=== PATIENT | female | born 1950 | race Caucasian/White ===

== ENCOUNTER 2019-08-22 15:19 | Emergency (ER) | payer MEDICARE, SELFPAY ==
--- NOTE | ~2019-08-22 | XR_ITS ---
EXAMINATION: XR shoulder RT min 2V EXAM DATE: 08/22/2019 16:19 INDICATION: Initial encounter following injury, with pain of the right shoulder. Fall 2 days ago. TECHNIQUE: The following right shoulder projections obtained: frontal projection with internal rotati on, frontal projection with external rotation, Grashey, and scapular Y view (4+ views). Correlation w as made with right humerus examination 01/03/2013. FINDINGS: There is age indeterminate right 5th rib fracture laterally. Bones appear osteopenic. No e vidence of right shoulder rotator cuff calcific tendinosis. There is mild glenohumeral, mild to mode rate acromioclavicular joint primary osteoarthritis. There are no acute right shoulder fractures or d islocations identified. There is no subcutaneous gas. The soft tissue is unremarkable. There are no radiopaque foreign bodies. IMPRESSION: 1. Age-indeterminate right 5th rib fracture laterally. 2. Shoulder mild to moderate arthritis without acute findings. Reviewed, dictated and finalized at location A.
--- NOTE | ~2019-08-22 | XR_ITS ---
EXAMINATION: XR wrist RT min 3V, XR hand RT min 3V EXAM DATE: 08/22/2019 16:19 INDICATION: Initial encounter following injury, with pain of the right hand, wrist. TECHNIQUE: Right hand frontal, lateral and oblique projections obtained and reviewed. Right wrist fro ntal, frontal with ulnar deviation, oblique and lateral projections obtained and reviewed. There is no prior study for comparison. FINDINGS: Right metacarpal bones are unremarkable. Right wrist scapholunate joint space is maintain ed. There is moderate triscaphe primary osteoarthritis. There are no acute fractures or dislocations identified. There is no subcutaneous gas. The soft tissue is unremarkable. There are no radiopaq ue foreign bodies. IMPRESSION: 1. Right hand, wrist exam without acute osseous findings. Reviewed, dictated and finalized at location A. IMPRESSION: 1. Right hand, wrist exam without acute osseous findings.
--- NOTE | ~2019-08-22 | CT_ITS ---
EXAMINATION: CT wrist RT wo con EXAM DATE: 08/22/2019 16:55 INDICATION: Scaphoid pain. Fall on outstretched hand. TECHNIQUE: Spiral CT wrist RT wo con was performed without contrast. Axial, coronal and sagittal im ages were reviewed. The dose-length product (DLP) for this examination was 402.21 mGy-cm. The expos ure was tailored according to patient size (auto mA exposure control), and iterative reconstruction ( ASIR) was used as additional dose reduction technique. Correlation is made to x-ray same date. FINDINGS: The scaphoid is unremarkable. There is moderate triscaphe primary osteoarthritis. There ar e no acute right wrist fractures or dislocations identified. There is no subcutaneous gas. The soft tissue is unremarkable. There are no radiopaque foreign bodies. IMPRESSION: No acute osseous findings. Reviewed, dictated and finalized at location A. IMPRESSION: No acute osseous findings.
[2019-08-22 15:45] VITALS: BP 148/76; PULSE 101; RESP 16; TEMP 37.2; O2SAT 95
--- NOTE | 2019-08-22 15:56 | ED.UPPEXIN ---
HPI - Extremity Injury (Upper) General Chief Complaint: Extremity Injury, Upper Stated Complaint: r shoulder and hand pain Source: patient Mode of arrival: ambulatory Limitations: no limitations History of Present Illness HPI narrative: [age] year over female with diabetes and fibromyalgia tripped 2 days ago on a concrete step off. She fell onto her outstretched right hand and then rolled onto her shoulder. She then had right shoulder, wrist and hand pain which wasn't too bad initially but has gotten progressively worse since. She describes a burning discomfort in the back of right her arm radiating to the anterior mid arm. She also has pain in her right volar hand; she points to the distal 3rd metacarpal and 4th digit. Her pain gets worse when she reaches, tries to grab something or vacuums. She is right-hand dominant. She did not hit her head. There was no LOC or headache. Related Data Home Medications Medication Instructions Recorded Confirmed metformin 1,000 mg tablet 1,000 mg PO BID 01/17/19 08/22/19 albuterol sulfate 90 mcg/actuation 1 inhalation INHALATION Q4H 04/10/19 08/22/19 aerosol inhaler bupropion HCl 150 mg tablet,12 hr 150 mg PO QAM 04/10/19 08/22/19 sustained-release fluticasone propionate 110 1 puff INHALATION Q12H 04/10/19 08/22/19 mcg/actuation HFA aerosol inhaler Allergies Allergy/AdvReac Type Severity Reaction Status Date / Time clarithromycin Allergy Mild tongue Verified 08/03/19 09:41 swelling Penicillins Allergy Mild swelling & Verified 08/03/19 09:41 difficulty breathing prochlorperazine Allergy Mild doesn't Verified 08/03/19 09:41 remember Sulfa (Sulfonamide Allergy Mild toungue Verified 08/03/19 09:41 Antibiotics) swelling sumatriptan Allergy Unknown THROAT Verified 08/03/19 09:41 SWELLING PROCHLORPERAZINE EDISYLATE Allergy Unknown Unknown Uncoded 04/14/19 16:12 PROCHLORPERAZINE MALEATE Allergy Unknown Unknown Uncoded 04/14/19 16:12 SUMATRIPTAN SUCCINATE Allergy Unknown Unknown Uncoded 04/14/19 16:12 Review of Systems Constitutional: Constitutional: Denies chills and Denies fever(s) Cardiovascular: Cardiovascular: Denies chest pain Respiratory: Respiratory: Denies dyspnea Musculoskeletal: Musculoskeletal: Reports no additional musculoskeletal complaints Integumentary/Breasts: Skin/Breast: Reports system reviewed and no additional complaints, except as docu Neurologic: Denies dizziness and Denies syncope FOR[facility]LY [facility] Past Medical History Medical History Anxiety COPD (chronic obstructive pulmonary disease) Depression Diabetes HLD (hyperlipidemia) Hypertension Normal colonoscopy (~2014) TIA (transient ischemic attack) Surgical History Surgical History H/O oophorectomy History of esophagogastroduodenoscopy (EGD) Family History Family History Mother Patient's mother is in good health Father Patient's father is in good health Social History Social History Smoking status: Heavy tobacco smoker Second hand tobacco smoke exposure: Yes Smoking end date: 08/27/18 Alcohol intake: never Exam Const: General: no acute distress Orientation/consciousness: patient oriented x3 Neck: Other: No c spine tenderness. Skin: General skin exam: normal color Extrem: Other: Tender right anterior, lateral and posterior shoulder and right scapula. Tender proximal posterior right arm. ROM of shoulder: forward flex to 80 degrees. Abduct to 45 degrees. Pain at endpoints. Right elbow is nontender with full ROM. Right snuff box tenderness. Full wrist ROM. Tender distal 3 and 4th metacarpals and 4th finger. Full ROM of all digits. Course Course Emergency Course: Explanation given why CT of wrist i
[2019-08-22] MEDS: KETOROLAC (*BKC) 60 MG/2 ML VIAL 30 MG IM (17:32)
[2019-08-22 17:39] VITALS: RESP 18
== END 2019-08-22 17:41 | disposition home or self-care (01) ==
PROVIDERS: Emergency Provider Family Medicine; PCP Family Medicine
DX: S43.401A Unspecified sprain of right shoulder joint, initial encounter (principal); M25.531 Pain in right wrist; M79.641 Pain in right hand; S22.31XA Fracture of one rib, right side, initial encounter for closed fracture; W01.0XXA Fall on same level from slipping, tripping and stumbling without subsequent striking against object, initial encounter
CPT/HCPCS: 73030; 73110; 73130; 73200; 96372; 99283; 99284; J1885

== ENCOUNTER 2019-12-06 10:38 | Outpatient (NON) | payer MEDICARE, SELFPAY ==
[2019-12-07 02:13] LABS: SARS-CoV-2 RNA PCR Negative
== END 2019-12-06 10:39 ==
PROVIDERS: PCP Family Medicine; Visit Provider Physician Assistant
DX: R50.9 Fever, unspecified (principal); Z20.828 Contact with and (suspected) exposure to other viral communicable diseases
CPT/HCPCS: 87635; C9803; U0003

== ENCOUNTER 2020-05-07 13:45 | Emergency (ER) | payer MEDICARE, SELFPAY ==
[2020-05-07 14:52] VITALS: BP 133/49; PULSE 89; RESP 20; TEMP 36.9; O2SAT 94
--- NOTE | 2020-05-07 15:28 | PC.NURSE ---
1528 PT WALKED OUT PT NOT SEEN BY PROVIDER WHO WAS BUSY WITH CRITICAL PT. PT HERE FOR SORE THROAT
--- NOTE | 2020-05-07 22:29 | ED.EAR ---
HPI - Ear Problem General Chief complaint: Ear Stated complaint: Sore throat/Bumps on Tongue/Headache Source: patient History of Present Illness HPI Narrative: This patient came in to be seen for an earache and a sore throat, and she left without being seen. Related Data Home Medications Medication Instructions Recorded Confirmed fluticasone propionate 110 1 puff INHALATION Q12H 04/10/19 08/22/19 mcg/actuation HFA aerosol inhaler aspirin 325 mg tablet 325 mg PO DAILY 12/08/19 Allergies Allergy/AdvReac Type Severity Reaction Status Date / Time clarithromycin Allergy Mild tongue Verified 05/07/20 15:03 swelling Penicillins Allergy Mild swelling & Verified 05/07/20 15:03 difficulty breathing prochlorperazine Allergy Mild doesn't Verified 05/07/20 15:03 remember Sulfa (Sulfonamide Allergy Mild toungue Verified 05/07/20 15:03 Antibiotics) swelling sumatriptan Allergy Unknown THROAT Verified 05/07/20 15:03 SWELLING bupropion AdvReac Severe Diarrhea Verified 05/07/20 15:03 PROCHLORPERAZINE EDISYLATE Allergy Unknown Unknown Uncoded 05/07/20 15:03 PROCHLORPERAZINE MALEATE Allergy Unknown Unknown Uncoded 05/07/20 15:03 SUMATRIPTAN SUCCINATE Allergy Unknown Unknown Uncoded 05/07/20 15:03 [facility] Past Medical History Medical History (Updated 04/09/20 @ 16:02 by Anabella Prince MD) Allergic rhinitis Anxiety Chronic low back pain COPD (chronic obstructive pulmonary disease) Depression Diabetes HLD (hyperlipidemia) Hypertension Lumbar radiculopathy Normal colonoscopy (~2014) TIA (transient ischemic attack) Surgical History Surgical History H/O oophorectomy History of esophagogastroduodenoscopy (EGD) Family History Family History Mother Patient's mother is in good health Father Patient's father is in good health Social History Social History Smoking packs per day: 1.5 Smoking cigarettes per day: 30.0 Years smoked: 50 Smoking pack-years: 75.00 Smoking status: Former smoker Second hand tobacco smoke exposure: Yes Smoking end date: 08/27/18 Alcohol intake: current Substance use: current Substance use type: marijuana Gender identity (if verbalized by the patient): Female Course Vital Signs Vital signs: Vital Signs Temperature 36.9 C 05/07/20 14:52 Pulse Rate 89 05/07/20 14:52 Respiratory Rate 20 05/07/20 14:52 Blood Pressure 133/49 L 05/07/20 14:52 Pulse Oximetry 94 05/07/20 14:52 Temperature 36.9 C 05/07/20 14:52 Pulse Rate 89 05/07/20 14:52 Respiratory Rate 20 05/07/20 14:52 Blood Pressure 133/49 L 05/07/20 14:52 Pulse Oximetry 94 05/07/20 14:52 Medical Decision Making Vital Signs Vital Signs: Vital Signs Temperature 36.9 C 05/07/20 14:52 Pulse Rate 89 05/07/20 14:52 Respiratory Rate 20 05/07/20 14:52 Blood Pressure 133/49 L 05/07/20 14:52 Pulse Oximetry 94 05/07/20 14:52 Temperature 36.9 C 05/07/20 14:52 Pulse Rate 89 05/07/20 14:52 Respiratory Rate 20 05/07/20 14:52 Blood Pressure 133/49 L 05/07/20 14:52 Pulse Oximetry 94 05/07/20 14:52 Discharge Plan Discharge Patient Disposition: Left Without Being Seen Prescriptions: No Action aspirin 325 mg tablet 325 mg PO DAILY RF: 0 loratadine 10 mg tablet 10 mg PO DAILY Qty: 30 RF: 5 fluticasone propionate 50 mcg/actuation spray,suspension 1 spray NASAL Q12H Qty: 1 RF: 2 pregabalin [Lyrica] 50 mg capsule 50 mg PO BID Qty: 60 RF: 2 (DME) Accu-Chek Ruchi Plus test strp Strip See Rx Instructions .ROUTE .MEDSUPPLY Qty: 100 RF: 12 Flovent HFA 110 mcg/actuation HFA aerosol inhaler 1 puff INHALATION Q12H RF: 0 (DME) BD Insulin Syringe U-500 1/2 mL 31 gauge x 15/64 syringe See Rx Instruction
== END 2020-05-07 15:35 | disposition left against medical advice (07) ==
PROVIDERS: Emergency Provider Emergency Medicine; PCP Family Medicine
DX: J02.9 Acute pharyngitis, unspecified (principal); R51.9 Headache, unspecified; I10 Essential (primary) hypertension; J30.9 Allergic rhinitis, unspecified; J44.9 Chronic obstructive pulmonary disease, unspecified; E11.9 Type 2 diabetes mellitus without complications; M54.16 Radiculopathy, lumbar region; F32.9 Major depressive disorder, single episode, unspecified; F41.9 Anxiety disorder, unspecified; Z09 Encounter for follow-up examination after completed treatment for conditions other than malignant neoplasm; Z86.73 Personal history of transient ischemic attack (TIA), and cerebral infarction without residual deficits; Z53.21 Procedure and treatment not carried out due to patient leaving prior to being seen by health care provider
CPT/HCPCS: 99199

== ENCOUNTER 2020-08-29 13:54 | Emergency (ER) | payer MEDICARE, SELFPAY ==
[2020-08-29 14:18] VITALS: BP 149/59; PULSE 112; RESP 16; TEMP 36.6; O2SAT 98
[2020-08-29] MEDS: SILVER NITRATE (*SP) STICK 2 EACH (14:44)
--- NOTE | 2020-08-29 15:14 | ED.GENADULT ---
HPI - General Adult General Chief complaint: Wound/Laceration Stated complaint: SCRATCH THAT WONT STOP BLEEDING Time Seen by Provider: 08/29/20 13:59 Source: patient and RN notes reviewed Mode of arrival: ambulatory Limitations: no limitations History of Present Illness HPI narrative: Patient is 70-year-old female who presents to emergency department for evaluation of bleeding from the face scratched a small area just below the lip and has since been unable to stop the bleeding for the last couple of hours denies similar occurrence or bleeding from other locations or anticoagulant use does take a full strength baby aspirin daily has no other complaints presents in no distress Related Data Home Medications Medication Instructions Recorded Confirmed fluticasone propionate 110 1 puff INHALATION Q12H 04/10/19 08/22/19 mcg/actuation HFA aerosol inhaler aspirin 325 mg tablet 325 mg PO DAILY 12/08/19 Allergies Allergy/AdvReac Type Severity Reaction Status Date / Time clarithromycin Allergy Mild tongue Verified 08/29/20 14:00 swelling Penicillins Allergy Mild swelling & Verified 08/29/20 14:00 difficulty breathing prochlorperazine Allergy Mild doesn't Verified 08/29/20 14:00 remember Sulfa (Sulfonamide Allergy Mild toungue Verified 08/29/20 14:00 Antibiotics) swelling sumatriptan Allergy Unknown THROAT Verified 08/29/20 14:00 SWELLING bupropion AdvReac Severe Diarrhea Verified 08/29/20 14:00 PROCHLORPERAZINE EDISYLATE Allergy Unknown Unknown Uncoded 08/29/20 14:00 PROCHLORPERAZINE MALEATE Allergy Unknown Unknown Uncoded 08/29/20 14:00 SUMATRIPTAN SUCCINATE Allergy Unknown Unknown Uncoded 08/29/20 14:00 Review of Systems Review of Systems: All systems reviewed & are unremarkable except as noted in HPI and below PMFSH Past Medical History Medical History Allergic rhinitis Anxiety Chronic low back pain COPD (chronic obstructive pulmonary disease) Depression Diabetes HLD (hyperlipidemia) Hypertension Lumbar radiculopathy Normal colonoscopy (~2014) TIA (transient ischemic attack) Surgical History Surgical History H/O oophorectomy History of esophagogastroduodenoscopy (EGD) Family History Family History Mother Patient's mother is in good health Father Patient's father is in good health Social History Social History Smoking packs per day: 1.5 Smoking cigarettes per day: 30.0 Years smoked: 50 Smoking pack-years: 75.00 Second hand tobacco smoke exposure: Yes Smoking end date: 08/27/18 Alcohol intake: current Substance use: current Substance use type: marijuana Gender identity (if verbalized by the patient): Female Exam Narrative: Exam Narrative: GENERAL: Well-appearing, well-nourished, and in no acute distress. HEAD: Normocephalic, atraumatic. EYES: PERRLA and EOMI. ENT: Nares clear, no rhinorrhea or epistaxis. Mucous membranes moist. CHEST: Clear to auscultation. No respiratory distress. No wheezes rales or rhonchi HEART: Regular rate and rhythm. No murmur heard. Normal peripheral pulses. EXTREMITIES: Normal range of motion. No edema. SKIN: Warm, dry, no rash. Small subcentimeter area of bleeding below the left lower lip that is superficial in nature will not resolve with direct pressure NEURO: No focal deficits. Alert and oriented x3. PSYCH: Normal mood and affect. Course Course Emergency Course: Patient presented with bleeding from the face was cauterized with silver nitrate hemostasis achieved will follow up on an outpatient basis ABCs and vital signs intact and stable provided with reasons to return Vital Signs Vital signs: Vital Signs Temperature 98 F 08/29/20 14:18 Pulse Rate 112 H 08/29/20 14:
== END 2020-08-29 15:33 | disposition home or self-care (01) ==
PROVIDERS: Emergency Provider Emergency Medicine; PCP Family Medicine
DX: S00.81XA Abrasion of other part of head, initial encounter (principal); E11.9 Type 2 diabetes mellitus without complications; J44.9 Chronic obstructive pulmonary disease, unspecified; E78.5 Hyperlipidemia, unspecified; I10 Essential (primary) hypertension; Z86.73 Personal history of transient ischemic attack (TIA), and cerebral infarction without residual deficits; F41.9 Anxiety disorder, unspecified; F32.9 Major depressive disorder, single episode, unspecified; Z79.82 Long term (current) use of aspirin; Z79.4 Long term (current) use of insulin; F17.210 Nicotine dependence, cigarettes, uncomplicated; X58.XXXA Exposure to other specified factors, initial encounter
CPT/HCPCS: 12011; 99282

== ENCOUNTER 2021-03-27 10:06 | Outpatient (CLI) | payer MEDICARE, SELFPAY ==
--- NOTE | ~2021-03-27 | XR_ITS ---
EXAMINATION: XR abdomen obstructive series EXAM DATE: 03/27/2021 10:46 INDICATION: R10.9 - Unspecified abdominal pain,Last Known Bm Weeks Ago . TECHNIQUE: Frontal upright projection of the upper abdomen, frontal projection of the lower abdomen f or interpretation. There is no prior study for comparison. FINDINGS: There is expected amount of colonic stool and gas. No small bowel dilation, nonobstructiv e bowel gas pattern. There are no suspicious calcifications identified. There is no organomegaly suspected. Large thoracolumbar endplate osteophytes. There is no free intraperitoneal air. The alton ng bases are clear. There are cholecystectomy clips. IMPRESSION: Expected amount of colonic stool, gas. Reviewed, dictated and finalized at location A. 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
[2021-03-27 10:25] LABS: Basophils Absolute Auto 0.1 K/mm3 (0.0-0.1); Basophils Percent Auto 0.8 % (0.2-1.2); Eosinophils Absolute Auto 0.2 K/mm3 (0-0.3); Eosinophils Percent Auto 2.7 % (0-4.4); Hemoglobin 14.8 g/dL (12.0-15.0); Immature Granulocyte Absolute 0.03 K/mm3 (0.00-0.031); Immature Granulocyte Percent A 0.4 % (0-0.5); Lymphocytes Absolute Auto 1.65 K/mm3 (0.9-3.2); Lymphocytes Percent Auto 21.3 % (18.3-44.2); Mean Corpuscular HGB Conc 32.9 g/dl (32-36); Mean Corpuscular Hemoglobin 32.5 pg (26-34); Mean Corpuscular Volume 98.9 fl (80-100); Mean Platelet Volume 10.1 fl (7.4-10.4); Monocytes Absolute Auto 0.7 K/mm3 (0.1-0.6); Monocytes Percent Auto 9.4 % (2.6-8.5); Neutrophils Absolute Auto 5.1 K/mm3 (1.3-6.7); Neutrophils Percent Auto 65.4 % (45.5-73.1); Platelet Count Result 245 k/mm3 (150-375); Red Blood Count 4.55 M/mm3 (4.2-5.4); Red Cell Distribution Width 13.4 % (11.5-14.5); White Blood Count 7.8 K/mm3 (4.5-10.0)
[2021-03-27 10:37] LABS: Alanine Aminotransferase 74 U/L (4-35); Albumin Level 4.2 g/dL (3.5-5.1); Alkaline Phosphatase 78 U/L (38-126); Anion Gap 9 mmol/L (8-16); Aspartate Amino Transferase 70 U/L (14-36); Bilirubin,Total 0.6 mg/dL (0.2-1.3); Blood Urea Nitrogen 16 mg/dL (7-17); Calcium 10.1 mg/dL (8.4-10.2); Carbon Dioxide 28 mmol/L (22-30); Chloride 103 mmol/L (98-107); Estimated Glomerular Filt Rate > 60; Glucose 170 mg/dL (65-110); Lipase 118 U/L (23-300); Potassium 4.2 mmol/L (3.4-5.0); Sodium 140 mmol/L (137-145)
== END 2021-03-27 10:07 | disposition home or self-care (01) ==
PROVIDERS: PCP Family Medicine; Visit Provider Family Medicine
DX: R10.9 Unspecified abdominal pain (principal)
CPT/HCPCS: 36415; 74019; 80053; 83690; 85025

== ENCOUNTER 2021-08-18 12:01 | Outpatient (CLI) | payer MEDICARE, SELFPAY ==
[2021-08-18 13:40] LABS: Alanine Aminotransferase 22 U/L (6-35); Albumin Level 4.3 g/dL (3.5-5.1); Alkaline Phosphatase 77 U/L (38-126); Anion Gap 5 mmol/L (8-16); Aspartate Amino Transferase 25 U/L (14-36); Bilirubin,Total 0.5 mg/dL (0.2-1.3); Blood Urea Nitrogen 16 mg/dL (7-17); Calcium 9.2 mg/dL (8.4-10.2); Carbon Dioxide 30 mmol/L (22-30); Chloride 103 mmol/L (98-107); Cholesterol 132 mg/dL (0-200); Estimated Glomerular Filt Rate > 60; Glucose 133 mg/dL (65-110); HDL Direct 57 mg/dL; Potassium 3.9 mmol/L (3.4-5.0); Sodium 138 mmol/L (137-145); Triglycerides 85 mg/dL (<150)
[2021-08-18 13:42] LABS: Hemoglobin A1C 6.2 % (<5.7)
[2021-08-18 13:52] LABS: LDL Cholesterol Direct 53 mg/dL
== END 2021-08-18 12:02 | disposition home or self-care (01) ==
PROVIDERS: PCP Family Medicine; Visit Provider Physician Assistant
DX: E11.9 Type 2 diabetes mellitus without complications (principal); Z13.220 Encounter for screening for lipoid disorders; Z13.1 Encounter for screening for diabetes mellitus
CPT/HCPCS: 36415; 80053; 80061; 83036

== ENCOUNTER 2022-08-12 14:24 | Outpatient (CLI) | payer MEDICARE, SELFPAY ==
--- NOTE | ~2022-08-12 | XR_ITS ---
EXAMINATION: XR chest 2V Exam Date/Time: 08/12/2022 15:25 CDT HISTORY: ESSENTIAL HTN, PRE OP FOR SURGERY, HX DIABETES Comparison: 01/12/2015. RESULT: Lines, tubes, and devices: None. Lungs and pleura: Clear. Cardiomediastinal silhouette: Stable. Other: No acute osseous or upper abdominal finding. IMPRESSION: No acute cardiopulmonary process. Reviewed, dictated and finalized at location K.
--- NOTE | 2022-08-12 14:59 | ECG_ITS ---
Measurements Intervals [place] Rate: 86 P: 77 [place]: 153 QRS: 83 QRSD: 94 T: 73 QT: 368 QTc: 440 Interpretive Statements SINUS RHYTHM VENTRICULAR PREMATURE COMPLEX BASELINE ARTIFACT- I, II, III, AVR, AVL, AVF, V1 BORDERLINE ECG NO PREVIOUS ECG AVAILABLE FOR COMPARISON Electronically Signed On 08-12-2022 15:16:20 CDT by Edward Boss D.O.
[2022-08-12 15:00] LABS: Hematocrit 43.3 % (37.0-47.0); Mean Corpuscular HGB Conc 32.3 g/dl (32-36); Mean Corpuscular Hemoglobin 32.7 pg (26-34); Mean Corpuscular Volume 101.2 fl (80-100); Mean Platelet Volume 9.9 fl (7.4-10.4); Platelet Count Result 281 k/mm3 (150-375); Red Blood Count 4.28 M/mm3 (4.2-5.4); White Blood Count 7.2 K/mm3 (4.5-10.0)
[2022-08-12 15:20] LABS: Alanine Aminotransferase 33 U/L (6-35); Albumin Level 4.1 g/dL (3.5-5.1); Alkaline Phosphatase 58 U/L (38-126); Anion Gap 5 mmol/L (8-16); Aspartate Amino Transferase 40 U/L (14-36); Bilirubin,Total 0.6 mg/dL (0.2-1.3); Blood Urea Nitrogen 17 mg/dL (7-17); Calcium 9.5 mg/dL (8.4-10.2); Carbon Dioxide 32 mmol/L (22-30); Chloride 103 mmol/L (98-107); Estimated Glomerular Filt Rate > 60; Glucose 107 mg/dL (65-110); Potassium 4.3 mmol/L (3.4-5.0); Sodium 140 mmol/L (137-145)
== END 2022-08-12 14:25 | disposition home or self-care (01) ==
PROVIDERS: PCP Family Medicine; Visit Provider Family Medicine
DX: E11.9 Type 2 diabetes mellitus without complications (principal); E78.5 Hyperlipidemia, unspecified; I10 Essential (primary) hypertension; R53.83 Other fatigue; J44.9 Chronic obstructive pulmonary disease, unspecified; Z01.811 Encounter for preprocedural respiratory examination
CPT/HCPCS: 36415; 71046; 80053; 85027; 93005

== ENCOUNTER 2023-03-12 10:16 | Outpatient (CLI) | payer MEDICARE, SELFPAY ==
--- NOTE | ~2023-03-12 | US_ITS ---
US arterial ankle brachial ind INDICATION: Cardiovascular disease. Type 2 diabetes. TECHNIQUE: Segmental pressures and plethysmographic and Doppler waveforms of the brachial and lower e xtremity arteries were obtained. COMPARISON: None. FINDINGS: Right and left brachial artery pressures of 160 mm Hg and 151 mm Hg, respectively, are concordant (no rmal difference <= 30 mmHg). The right ankle-brachial index (LORENZO) is 1.1 (normal >= 0.9-1.0). The right great toe-brachial index ( TBI) is 0.89 (normal >= 0.60). The left LORENZO is 0.93. The left TBI is 0.64. IMPRESSION: 1. Normal bilateral ankle and toe brachial indices. Reviewed, dictated and finalized at location A. 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
[2023-03-12 10:48] LABS: Hemoglobin A1C 5.9 % (<5.7)
[2023-03-12 11:04] LABS: Alanine Aminotransferase 32 U/L (14-59); Albumin Level 3.8 g/dL (3.4-5.0); Alkaline Phosphatase 59 U/L (46-116); Anion Gap 8 mmol/L (8-16); Aspartate Amino Transferase 30 U/L (15-37); Bilirubin,Total 0.5 mg/dL (0.00-1.00); Blood Urea Nitrogen 14 mg/dL (7-18); Calcium 9.1 mg/dL (8.5-10.1); Carbon Dioxide 31 mmol/L (21-32); Chloride 101 mmol/L (98-108); Cholesterol 134 mg/dL (0-200); Estimated Glomerular Filt Rate > 60; Glucose 144 mg/dL (70-99); HDL Direct 65 mg/dL (40-60); LDL Cholesterol Calculated 42 mg/dL (<130); Osmolality Calculated 293 mOsm/kg (285-295); Potassium 4.2 mmol/L (3.5-5.1); Sodium 140 mmol/L (136-145); Total Protein 6.8 g/dL (6.4-8.2); Triglycerides 133 mg/dL (0-150)
[2023-03-16 14:59] LABS: Hepatitis C Virus Antibody Nonreactive
== END 2023-03-12 10:17 | disposition home or self-care (01) ==
LOC: CHSIMG 10:18
PROVIDERS: Physician Assistant Medical; PCP Family Medicine; Visit Provider Family Medicine
DX: I73.9 Peripheral vascular disease, unspecified (principal); E11.9 Type 2 diabetes mellitus without complications
CPT/HCPCS: 36415; 80053; 80061; 83036; 86803; 93922

== ENCOUNTER 2023-04-13 10:28 | Outpatient (CLI) | payer MEDICARE, SELFPAY ==
[2023-04-13 10:43] LABS: Appearance Urine Clear (Clear); Bilirubin Urine Negative (Negative); Blood Urine Negative (Negative); Color Urine Yellow (Yellow); Glucose Urine UA Negative (Negative); Ketones Urine Negative (Negative); Leukocyte Esterase Ur Negative LEU/UL (Negative); Nitrate Urine Negative (Negative); Protein Urine Negative (Negative); Specific Grav Ur 1.025 (1.010-1.020); Urobilinogen Urine 0.2 mg/dL (0.2-1.0); pH Urine 5.5 (5.0-8.0)
[2023-04-13 11:13] LABS: Add Urine Microscopic? NO
== END 2023-04-13 10:29 | disposition home or self-care (01) ==
LOC: CHSLAB 10:32
PROVIDERS: PCP Family Medicine; Visit Provider Family Medicine
DX: R30.0 Dysuria (principal)
CPT/HCPCS: 81003

== ENCOUNTER 2024-02-07 14:56 | Outpatient (CLI) | payer MEDICARE, SELFPAY ==
--- NOTE | 2024-02-07 15:04 | ECG_ITS ---
Test Date: 2024-02-07 15:14:19 Measurements Intervals [place] Rate: 82 P: 73 [place]: 163 QRS: 85 QRSD: 101 T: 77 QT: 373 QTc: 436 Interpretive Statements SINUS RHYTHM BASELINE ARTIFACT- I, II, III, AVR, AVL, AVF, V1-V2 NORMAL ECG No previous ECG available for comparison Electronically Signed On 02-07-2024 15:28:36 INPATIENT PHARMACIST by Edwadr Boss D.O.
== END 2024-02-07 14:57 | disposition home or self-care (01) ==
LOC: CHSCARD 15:00
PROVIDERS: PCP Family Medicine; Visit Provider Internal Medicine Cardiovascular Disease
DX: R07.9 Chest pain, unspecified (principal)
CPT/HCPCS: 93005

== ENCOUNTER 2024-08-18 09:29 | Outpatient (CLI) | payer MEDICARE, MEDICAID, SELFPAY ==
--- OUTSIDE RECORDS SUMMARY | 2024-08-18 09:34 | XMS_ITS | Data Portability ---
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 Plan of Treatment Reminders Order Date Submit Date Provider Last Modified By Organization Details Last Modified Time Details Appointments None recorded. Lab None recorded. 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 Surgeries None recorded. Imaging None recorded. Medication Orders None recorded. Patient TargetsNo targets recorded. Patient Instructions Encounter Date Encounter Id Patient Instructions Last Modified By Organization Details Last Modified Time 08/07/2022 [id number] I discussed with Alisha that the fracture she has sustained is 1 that would benefit from surgical intervention due to the orientation of the fracture. After discussed surgical versus nonsurgical treatment as well as potential outcomes, Alisha has decided to proceed with surgery. She is going to contact her primary care provider to get clearance for her surgery. I am going to follow-up with her in the clinic 2 weeks after her surgery. I am going to give her a prescription today for some [place] 7.5/325 to help with her pain. I want her to ice and elevate her arm between now and her surgery date to alleviate swelling in her arm. She was instructed to contact our office with any questions or concerns. She voiced understanding and agreed with this plan of care. Surgery Counseling We discussed various methods of treatment for this diagnosis, including both non-surgical and surgical treatment options. The procedure was discussed in detail, including rationale for proceeding with the procedure, specifics of the technical aspects of the procedure, and the expected postoperative course including the possible need for activity modification, therapy, and duration of expected recovery. Risks to surgery include: pain, numbing, scar, infection, loss of motion, nerve or vascular injury, stiffness, blood loss, reoccurrence, re-operation, non-union or mal-union, fracture, dislocation, unequal leg lengths, allergic reaction to medicine, heart attack, stroke or . Risks of allograft and blood transfusions include; infection, allergic reaction, disease transmission including hepatits or AIDS virus. Complications, including blood loss and potential need for transfusion, nerve injury, infection, success rates (expected outcomes) of the procedure, and risk of from anesthesia were discussed. Patient fully understands that there are no guarantees with surgical intervention. The patient voiced understanding of the procedure and risks, and the decision for surgery was made today. The patient will see their primary care physician for all preoperative clearances before proceeding with surgical intervention. It was emphasized with the patient that this will also include any specialist that may need to be consulted as well. Once this is complete, we will schedule surgical intervention accordingly. Patient was seen by Monica Monet NP, and the diagnoses, problems and treatment plan for the patient has been reviewed and approved by me, Dr. Zurdo Morataya. Not available 08/07/2022 17:27:31 09/02/2022 [id number] I discussed with Alisha that she seems to be doing well following her procedure. We went over incision care today including not to soak the incision in a hot tub, bathtub, swimming pool, or sink of water for at least 2 more weeks. I also do not want her putting any lotions, creams, ointments, or oils on the incision for at least 2 more weeks. I told her that she needs to continue wearing her custom splint to provide stability, support and protection for her wrist. I want her to continue working on her therapy exercises and limiting the use of this arm. She should continue to ice, elevate, and take pain medication as needed. I want to see her back in 4 weeks with another set of x-rays to check on her progress. She was instructed to contact our office with any questions or concerns. She voiced understanding and agreed with this plan of care. Patient was seen by Monica Monet NP, and the diagnoses, problems and treatment plan for the patient has been reviewed and approved by me, Dr. Zurdo Morataya. Not available 09/02/2022 19:11:35 10/23/2022 [id number] I discussed with Alisha that she seems to be doing well today. Her xrays show that her fracture is healing. She can discontinue the use of her splint. I want her to continue doing the therapy exercises she has been doing. I asked if she wanted to go to formal therapy for some strengthening exercises and she declined. I told her she can start adding in some weightbearing as tolerated. I am going to follow up with her on a PRN basis. She was instructed to contact us with any questions or concerns. She voiced understanding and agreed with this plan of care. Patient was seen by Monica Monet NP, and the diagnoses, problems and treatment plan for the patient has been reviewed and approved by me, Dr. Zurdo Morataya. [email or web address] Not available 10/27/2022 13:16:15 12/11/2022 [id number] I discussed with Alisha that the x-rays today look good and there is nothing concerning on them. I told her that part of the reason she could be having issues is that she did not come for her 6-week follow-up until she was 10 weeks out from surgery and she still had her splint on which means that her wrist had been immobilized much longer than it should have been. At her last appointment I tried to send her to physical therapy and she declined it, so I told her today that it would really benefit her to do some therapy to work on range of motion exercises as well as strengthening in this wrist. It sounds like she is having some nerve pain in this wrist and I discussed with her that the nerves generally take the longest to heal after a trauma and surgery. I also told her it does not help that she is a diabetic as well as a heavy smoker. Our plan today is to start some physical therapy which will hopefully provide her with some relief. She can continue taking the pain medication that she has at home as well as plain Tylenol. She can use ice and elevation as needed. I am going to follow-up with her on an as-needed basis. She was instructed to contact us with any questions or concerns. She voiced understanding and agreed with this plan of care. Patient was seen by Monica Monet NP, and the diagnoses, problems and treatment plan for the patient has been reviewed and approved by me, Dr. Zurdo Morataya. 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 [address], [address], 08/14/2022 18:10:29 09/03/19 23 09/02/2022 XR, wrist No observ ation record ed. [address], [address], 09/02/2022 16:48:53 10/24/19 23 10/23/2022 XR, wrist No observ ation record ed. [address], [address], 10/26/2022 10:00:11 12/14/19 23 12/13/2022 XR, wrist No observ ation record ed. [address], [place], [address], 12/14/2022 09:34:45 Result Notes None recorded. Problems Name Problem SNOMED Code Status Onset Date Resolution Date Notes Provider Name and Address Organization Details Recorded Time Hypertensiv e disorder 72887149 Active 2022 Sherry rogers [place] - [facility] 12:17:58 Diabetes mellitus 94637004 Active 2022 Sherry Stock[place] null, [place] - [facility] 12:17:58 Closed fracture of distal end of left radius 5107773904912 9107 Active 2022 Sherry Brayden [place], [place] - [facility] 12:17:58 Closed fracture of distal end of left radius 5637681195210 9107 Active 2022 Sherry Bray[place] - [facility] 12:17:58 Pain of left wrist 6276379460568 02 Active 2022 Sherry [place] [facility] 12:17:58 Chronic obstructive pulmonary disease 93246056 Active Sherry [place]ray[place] [facility] 12:17:58 Multiple premature ventricular complexes 767386906 Active Sherry [place] [facility] 12:17:58 Dyslipidemi a 338817937 Active Sherry [place] - [facility] 12:17:58 Postoperati ve visit 910715224 Active 2022 MONICA MONET, [employer] [address] [place], [address] [facility] [place] - [facility] 19:12:07 Problem Notes None recorded. Procedures Surgical History Date Name Laterality Status Provider Name and Address Organization Details Recorded Time 08/15/19 ORTHOPAEDIC SURGERY (SURG) completed Sherry Owen [place] - [facility] 08/14/2022 16:13:21 Carpal tunnel surgery [place] emilia kate [place] - [facility] 08/06/2022 10:52:47 [place]ectomy completed emilia kate [place] - [facility] 08/06/2022 10:53:13 Removal of ovarian cyst(s) [place]ate [place] [facility] 08/06/2022 10:59:10 cholecystectomy [place] em[place] kate [place] [facility] 08/06/2022 11:00:09 Imaging Results None recorded. Procedure Notes None recorded. Medical Equipment None Reported. Allergies Allergen ID Allergen Name Allergen Category Reaction Reaction Severity Criticality Documentation Date Start Date Code Code System Note Provider Name and Address Organization Details Recorded Time 1768 Product containin g penicilli n (product) medicatio n Not available Not available Not available 08/06/2022 00584 8001 SNOMED emilia rogers, [place] - [facility] 10:47:18 1769 Substance with sulfonami de structure and antibacte rial mechanism of action (substanc e) medicatio n Not available Not available Not available 08/06/2022 44992 8003 SNOMED emilia rogers, [place] - [facility] 10:47:34 1770 Compazine medicatio n Not available Not available Not available 08/06/202217817 6 RxNorm emilia kate ken, [place] - [facility] 10:58:27 1852 prochlorp erazine medicatio n Not available Not available Not available 09/02/20222012 8704 RxNorm Other react ions and sever ities : 'Unkn own'. Sherry rogers [place] - [facility] 12:17:42 1853 clarithro mycin medicatio n Not available Not available Not available 09/02/20222012 08662 RxNorm Other react ions and sever ities : 'Unkn own'. Sherry rogers [place] - [facility] 3 12:17:42 1854 sumatript an medicatio n Not available Not available Not available 09/02/20222012 82001 RxNorm Other react ions and sever ities : 'Thro at swell ing - Sever e'. Sherry rogers [place] - [facility] 12:17:42 Medications Name Sig Start Date Stop Date Status Note LastModified by Organization Details LastModified Time atorvastati n 40 mg tablet TAKE 1 TABLET BY MOUTH EVERY DAY active Not Available Not Available No t Available aspirin 325 mg tablet 325 mg by oral route. 2016 active Not Available Not Available Not Avai lable Nystop 100,000 unit/gram topical powder 2019 active Not Available Not Available Not Avai lable Lantus U-100 Insulin 100 unit/mL subcutaneou s solution INJECT 12 UNITS SUBCUTANE OUSLY DAILY (DISCARD VIAL 28 DAYS AFTER OPENING) active Not Available Not Available No t Available coenzyme Q10 150 mg capsule 150 mg by oral route. active Not Available Not Available No t Available pioglitazon e 45 mg tablet TAKE 1 TABLET BY MOUTH EVERY DAY active Not Available Not Available No t Available hydrocodone 10 mg-acetamin ophen 325 mg tablet TAKE 1 TABLET BY MOUTH EVERY 6 HOURS NEEDED FOR PAIN active Not Available Not Available No t Available oxycodone-a cetaminophe n 5 mg-325 mg tablet 0 {tbl}s every 4 hours by oral route. 08/14 completed Not Available Not Available Not Available hydrocodone 7.5 mg-acetamin ophen 325 mg tablet TAKE 1 TABLET BY MOUTH EVERY 4 HOURS NEEDED active Not Available Not Available No t Available paroxetine 20 mg tablet TAKE 1 TABLET BY MOUTH TWICE A DAY active Not Available Not Available No t Available metformin 1,000 mg tablet TAKE 1 TABLET BY MOUTH TWICE A DAY active Not Available Not Available No t Available glimepiride 4 mg tablet TAKE 1 TABLET BY MOUTH EVERY MORNING active Not Available Not Available No t Available losartan 25 mg tablet TAKE 1 TABLET BY MOUTH EVERY DAY active Not Available Not Available No t Available vitamin E 400 unit tablet 400 units by oral route. 2016 active Not Available Not Available Not Avai lable diclofenac sodium 75 mg tablet,mike yed release TAKE 1 TABLET BY MOUTH TWICE A DAY NEEDED FOR PAIN active Not Available Not Available No t Available montelukast 10 mg tablet TAKE 1 TABLET BY MOUTH EVERY DAY AT BEDTIME active Not Available Not Available No t Available ergocalcife rol (vitamin D2) 1,250 mcg (50,000 unit) capsule TAKE 1 CAPSULE BY MOUTH WEEKLY active Not Available Not Available No t Available oxycodone-a cetaminophe n 7.5 mg-325 mg tablet TAKE 1 TABLET BY MOUTH EVERY 6 HOURS NEEDED FOR PAIN active Not Available Not Available No t Available zolpidem 10 mg tablet TAKE 1 TABLET BY MOUTH AT BEDTIME active Not Available Not Available No t Available fluticasone propionate 50 mcg/actuati on nasal spray,suspe nsion 1 {spray} by nasal route. 2016 active Not Available Not Available Not Avai lable Ventolin HFA 90 mcg/actuati on aerosol inhaler 2 {puff}s every 6 hours by inhalatio n route. 2016 active Not Available Not Available Not Avai lable BD Insulin Syringe Ultra-Fine 0.3 mL 31 gauge x 07/28 USE DIRECTED- ONCE DAILY WITH INSULIN active Not Available Not Available No t Available Vitals Date Recorded Body weight Body temperature Heart rate Body mass index (BMI) Body height Systolic blood pressure Diastolic blood pressure Provider Name and Address Organization Details Last Updated DateTime 3 782908. 94 g 97 [degF] 97 /min 46.3 kg/m2 162.56 cm 114 mm[Hg] 61 mm[Hg] Slime UREÑA - [facility] 16:24:48 Date Recorded Body height Body mass index (BMI) Body weight Provider Name and Address Organization Details Last Updated DateTime 09/02/2022 162.56 cm 46.3 kg/m2 787830.94 g Sherry UREÑA - [facility] 09/02/2022 12:16:12 Date Recorded Body height Body mass index (BMI) Body weight Body temperature Heart rate Systolic blood pressure Diastolic blood pressure Provider Name and Address Organization Details Last Updated DateTime 3 162.56 cm 46 kg/m2 047551. 76 g 97.5 [degF] 88 /min 137 mm[Hg] 78 mm[Hg] Slime URÑEA - [facility] 3 14:30:31 Date Recorded Body height Body mass index (BMI) Body weight Heart rate Systolic blood pressure Diastolic blood pressure Provider Name and Address Organization Details Last Updated DateTime 3 162.56 cm 46 kg/m2 313024. 76 g 81 /min 131 mm[Hg] 76 mm[Hg] Sherry Owen [place] - [facility] 3 11:49:00 Social History Question Answer Notes LastModified by Organizat ion Details LastModified Time Tobacco Smoking Status Current Every Day Smoker [facility] 08/06/2022 10:49:08 Do You Have An Advance Directive? No [email or web address] Information n ot available 08/06/2022 Are You Blind Or Do You Have Difficulty Seeing? No Information n ot available 08/06/2022 Is Blood Transfusion Acceptable In An Emergency? Yes Information not available 08/06/2022 What Is Your Level Of Caffeine Consumption? Heavy [email or web address] Information not available 08/06/2022 In The 14 Days Before Symptom Onset, Have You Had Close Contact With A Laboratory-confirm ed COVID-19 While That Case Was Ill? No Information n ot available 08/06/2022 In The 14 Days Before Symptom Onset, Have You Had Close Contact With A Person Who Is Under Investigation For COVID-19 While That Person Was Ill? No Information not available 08/06/2022 Have You Been To An Area Known To Be High Risk For COVID-19? No [email or web address] Information not available 08/06/2022 Are You Deaf Or Do You Have Serious Difficulty Hearing? No [email or web address] Information not available 08/06/2022 What Type Of Diet Are You Following? DIABETIC [email or web address] Information n ot available 08/06/2022 Have You Processed Blood Or Body Fluids From An Ebola Virus Disease Patient Without Appropriate PPE? No [email or web address] Information not available 08/06/2022 Do You Reside In Or Have You Traveled To An Area Where Ebola Virus Transmission Is Active? No Information not available 08/06/2022 What Is The Highest Grade Or Level Of School You Have Completed Or The Highest Degree You Have Received? [id number] Information not available 08/06/2022 Are There Any Guns Present In Your Home? No Information not available 08/06/2022 Which Of Your Hands Is Dominant? Right [email or web address] Information n ot available 08/06/2022 What Is Your Relationship Status? Single Information not available 08/06/2022 Do You Use Your Seat Belt Or Car Seat Routinely? Yes [email or web address] Information not available 08/06/2022 Are You Sexually Active? No [email or web address] Information not available 08/06/2022 Do You Have Smoke And Carbon Monoxide Detectors In Your Home? Yes Information not available 08/06/2022 How Much Tobacco Do You Smoke? 1 PPW [email or web address] Information not available 08/06/2022 Do You Use Sunscreen Routinely? Yes [email or web address] Information not available 08/06/2022 Do You Have Difficulty Walking Or Climbing Stairs? No [email or web address] Information not available 08/06/2022 Sex: Female Functional Status Question Answer Note LastModified by Organizat ion Details LastModified Time Do you use any illicit or recreational drugs? No [email or web address] Information not available 08/06/2022 Do you or have you ever used any other forms of tobacco or nicotine? No [email or web address] Information not available 08/06/2022 What is your level of alcohol consumption? None [email or web address] Information not available 08/06/2022 Are you currently employed? No [email or web address] Information not available 08/06/2022 Are you able to walk? [email or web address] Information not available 08/06/2022 Do you have difficulty doing errands alone? No Information not available 08/06/2022 Are you able to care for yourself? Yes [email or web address] Information n ot available 08/06/2022 Do you have difficulty dressing or bathing? No [email or web address] Information not available 08/06/2022 What is your exercise level? None [email or web address] Information not available 08/06/2022 Mental Status Question Answer Note LastModified by Organizat ion Details LastModified Time Do you feel stressed (tense, restless, nervous, or anxious, or unable to sleep at night)? [id number] [email or web address] Information not available 08/06/2022 Do you have difficulty concentrating, remembering or making decisions? No Information no t available 08/06/2022 Family History Relationship Description Onset Age of this Age Resolved Age Notes LastModified by Organization Details LastModified Time Father No current problems or disability [email or web address] Not available 08/06 10:47:54 Mother No current problems or disability [email or web address] Not available 08/06 10:47:54 Medical History Condition Response Heart Problems N Coronary Artery Disease N Gout N Anxiety/Depression N Blood Transfusion N Hernia N Migraines N Thyroid Problems N COPD N Pacemaker N Anemia N Heart Attack ([place]) N Ulcers N Diabetes Y Bleeding Disorder N Orthotics N Arthritis N Seizures/Epilepsy N Blood Clot N Tuberculosis N AIDS/HIV N Cancer N Stroke N Asthma N Peripheral Vascular Disease N High Cholesterol N Hepatitis N Liver Disease N Rheumatoid Arthritis N Pulmonary Embolism N Hypertension Y Osteoporosis N Kidney Disease N Gynecological HistoryNo gynecological history recorded. Obstetrics History GPAL:G 0 P 0 0 0 0 Past Encounters Encounter ID Performer Location Encounter Start Date Encounter Closed Date Diagnosis/Indication Diagnosis SNOMED-CT Code Diagnosis ICD10 Code Diagnosis Note [id number] Zurdo Morataya [address] [address] 08/07/2022 16:01:02 08/07/2022 17:15:07 Closed fracture of distal end of left radius 4503151545 9109326 S52.572A Pain of left wrist 66952 91310 86187 M25.532 [id number] Zurdo Morataya [facility] [address] [place] [address] 09/02/2022 12:10:01 09/02/2022 12:41:42 Closed fracture of distal end of left radius 2230644357 1401134 S52.572D Postoperative visit 1836 79073 Z09 [id number] Zurdo Morataya [address] [address] 10/23/2022 14:11:24 10/23/2022 14:47:12 Closed fracture of distal end of left radius 5376708908 7839199 S52.572D Postoperative visit 1836 32989 Z09 [id number] Zurdo Morataya [address] [address] 12/11/2022 11:33:13 12/11/2022 12:18:51 Closed fracture of distal end of left radius 1673481026 4368762 S52.572D Pain of left wrist 15836 38276 47807 M25.532 Health Concerns Section Related Observation LastModified by Organization Detai ls LastModified Time None Recorded Concern Status LastModified by Organization Details LastModified Time None Recorded Advance Directives Directive N: Payers Encounter Date Sequence Insurance Name Policy Number Policy Gipson Covered Member ID Gipson Member ID Guarantor Name 08/07/2022 1 [employer] (MEDICARE REPLACEMENT/ ADVANTAGE - HMO) [id number] Alisha Gutierrez [id number] Alisha Gutierrez 09/02/2022 1 [employer] (MEDICARE REPLACEMENT/ ADVANTAGE - HMO) [id number] Alisha Gutierrez [id number] Alisha Gutierrez 10/23/2022 1 [employer] (MEDICARE REPLACEMENT/ ADVANTAGE - HMO) [id number] Alisha Gutierrez [id number] Alisha Gutierrez 12/11/2022 1 [employer] (MEDICARE REPLACEMENT/ ADVANTAGE - HMO) [id number] Alisha Gutierrez [id number] Alisha Gutierrez Notes Date Note Type Note Provider Name and Address Organization Details Recorded Time 08/07/2022 text/html Wrist/HandReport ed bypatient.Hand Dominance:right Location:left; radial Quality:aching; sharp Severity:moderate; pain level 7/10; worst pain 10/10 Timing:acute Duration:date of onset: (08/03/2022) Context:fall Aggravating Factors:lifting; carrying; pushing/pulling; gripping; grasping; squeezing; ROM; weightbearing Alleviating Factors:rest; limited weight bearing; splint Associated Symptoms:no numbness; no tingling;swelling;e cchymosis Prior Imaging:[facility] Alisha presents to the clinic today following a [facility] on 08/03/2022 after she fell in her home when she tripped over her cat. She landed on her left wrist and had immediate pain. She presents today wearing an Ortho-Glass splint. She says she has moderate to severe pain that she rates a 7 at rest and 10 with any movement. She has been taking Tylenol but reports that it is not offering any relief. She was not given any pain medication from the ED. The ROS is reviewed with the patient and a copy is located in the chart. MONICA MONET, [employer] [id number], [place], [address], [place] [facility] 08/07/2022 17:28:19 09/02/2022 text/html Wrist/HandReport ed bypatient.Hand Dominance:right Location:left; radial Quality:aching Severity:mild; pain level 2-3/10 Timing:acute Duration:date of onset: (08/03/2022) Context:fall Alleviating Factors:rest; limited weight bearing; previous surgery; splint Associated Symptoms:no numbness; no tingling;swelling;e cchymosis;stiffness Previous Surgery:surgical procedure: (left wrist ORIF); date: (08/14/2022) Prior Imaging:radha Brito is seen in clinic today for her 2-week follow-up after a left wrist ORIF on 08/14/2022. She says she is doing good today and has minimal pain. She presents in her custom molded splint and says that she has been wearing this as instructed. She rates her pain a 2-3/10. She has been attending therapy and says those sessions are going well. She has no complaints today. MONICA MONET APRN [id number] [place], [address], [facility] - [facility] 09/02/2022 19:18:03 10/23/2022 text/html Wrist/HandReport ed bypatient.Hand Dominance:right Location:left; radial Quality:aching Severity:mild; pain level 2-3/10 Timing:acute Duration:date of onset: (08/03/2022) Context:fall Alleviating Factors:rest; limited weight bearing; previous surgery; splint Associated Symptoms:no numbness; no tingling Previous Surgery:surgical procedure: (left wrist ORIF); date: (08/14/2022) Prior Imaging:radha Brito is seen in clinic today for her 10-week follow-up after a left wrist ORIF on 08/14/2022. She was unable to come for her 6 week appointment, so she was still wearing her splint today. She says she is doing good today and has minimal pain. She has been doing exercises at home and says her ROM is improving. She has no new complaints today. MONICA MONET APRN [id number] [place], [id number], [place] [facility] 10/27/2022 13:16:57 12/11/2022 text/html Wrist/HandReport ed bypatient.Hand Dominance:right Location:left; ulnar; radial Quality:aching Severity:moderate; pain level 6/10 Duration:date of onset: (08/03/2022) Context:fall Aggravating Factors:lifting; twisting; ROM; weightbearing Alleviating Factors:rest; limited weight bearing Associated Symptoms:no numbness; no tingling;weakness Previous Surgery:surgical procedure: (left wrist ORIF); date: (08/14/2022) Prior Imaging:x ray Alisha returns due to increased pain and problems in her left wrist following her left wrist ORIF on 08/14/22. Upon presentation she is in a wheelchair. She states that the wrist hurts a lot of the time and she still does not have full ROM back. She does admit that even though she did attend formal physical therapy she was not able to go every session and did miss quite a few. Lifting and grasping are difficult. Working on her computer with her arm resting at her side will cause the wrist to burn and ache. She says her pain is located on the radial side as well as the ulnar side. She rates her pain a 6/10 today. Just picking up a cup of coffee hurts. She is now back to babying this extremity. She has once again started doing the home exercise program she was taught in therapy. MONICA MONET, [employer] [id number] [place], [id number], [place] [facility] 12/12/2022 14:46:27 OBGyn Episode No OBEpisode recorded.
[2024-08-18 09:46] LABS: Basophils Absolute Auto 0.05 K/mm3 (0.00-0.10); Basophils Percent Auto 0.7 % (0.0-1.0); Eosinophils Percent Auto 2.8 % (1.0-6.0); Hematocrit 44.8 % (35.0-42.0); Hemoglobin 14.2 g/dL (11.7-13.8); Immature Granulocyte Absolute 0.02 K/mm3 (0.00-0.00); Immature Granulocyte Percent A 0.3 % (0.0-0.0); Lymphocytes Percent Auto 28.1 % (18.0-42.0); Mean Corpuscular HGB Conc 31.7 g/dL (32-36); Mean Corpuscular Hemoglobin 32.1 pg (27.0-31.0); Mean Corpuscular Volume 101.4 fL (78.0-102.0); Mean Platelet Volume 10.1 fl (9.2-11.8); Monocytes Absolute Auto 0.69 K/mm3 (0.10-0.90); Monocytes Percent Auto 9.7 % (2.0-11.0); Neutrophils Absolute Auto 4.16 K/mm3 (1.70-7.20); Neutrophils Percent Auto 58.4 % (50.0-70.0); Platelet Count Result 227 K/mm3 (150-420); Red Blood Count 4.42 M/mm3 (4.20-5.40); Red Cell Distribution Width 13.7 % (11.6-14.4); White Blood Count 7.1 K/mm3 (4.8-10.8)
[2024-08-18 12:17] LABS: Alanine Aminotransferase 20 U/L (6-35); Albumin Level 4.1 g/dL (3.5-5.1); Alkaline Phosphatase 64 U/L (38-126); Anion Gap 5 mmol/L (4-12); Aspartate Amino Transferase 28 U/L (14-36); Bilirubin,Total 0.5 mg/dL (0.2-1.3); Blood Urea Nitrogen 20 mg/dL (7-17); Calcium 9.5 mg/dL (8.4-10.2); Carbon Dioxide 29 mmol/L (22-30); Chloride 106 mmol/L (98-107); Cholesterol 141 mg/dL (0-200); Estimated Glomerular Filt Rate > 60; Glucose 97 mg/dL (65-110); HDL Direct 64 mg/dL; LDL Cholesterol Calculated 56 mg/dL (<130); Osmolality Calculated 292 mOsm/kg (285-295); Potassium 4.6 mmol/L (3.4-5.0); Sodium 140 mmol/L (137-145); Total Protein 6.5 g/dL (6.3-8.2); Triglycerides 107 mg/dL (<150)
[2024-08-18 12:30] LABS: Free T4 Free Thyroxine 1.12 ng/dL (0.78-2.19); Vitamin D 25 Hydroxy 23.5 ng/mL
[2024-08-18 12:51] LABS: Hemoglobin A1C 5.4 % (<5.7)
== END 2024-08-18 09:30 | disposition home or self-care (01) ==
PROVIDERS: PCP Family Medicine; Visit Provider Student in an Organized Health Care Education/Training Program
DX: E78.2 Mixed hyperlipidemia (principal); E11.9 Type 2 diabetes mellitus without complications; E55.9 Vitamin D deficiency, unspecified; R53.83 Other fatigue; J44.9 Chronic obstructive pulmonary disease, unspecified; I10 Essential (primary) hypertension; E78.5 Hyperlipidemia, unspecified; E11.43 Type 2 diabetes mellitus with diabetic autonomic (poly)neuropathy; Z79.4 Long term (current) use of insulin; Z09 Encounter for follow-up examination after completed treatment for conditions other than malignant neoplasm
CPT/HCPCS: 36415; 80053; 80061; 82306; 83036; 84439; 84443; 85025